=== PATIENT | female | born 1985 | race Caucasian/White ===

== ENCOUNTER 2016-08-14 01:33 | Emergency (ER) | payer OTHER ==
--- NOTE | ~2016-08-14 | CR126 ---
[facility] A Service of [facility] / [facility] RADIOLOGY TEXT RESULTS PATIENT: BRIDGETT MURPHY LOCATION: [facility] : 89 UNIT #: [id number] AGE: [address]: Nereyda Navarrete SEX: F ORDER DR: [id number] [facility] [address] [place], [place] [address] [id number] E MR#: [id number] Acc #: [id number] NAME: BRIDGETT MURPHY : 1985 SEX: F STUDY DATE/TIME: 08/14/2016 1:49 UNIT: [facility] ROOM: STUDY DESCRIPTION: CR Foot Complete Min 3 View Lt Attending Physician: Nereyda Navarrete Pa-C Ordering Physician: Nereyda Navarrete Pa-C Primary Care Physician: No Primary Care Physician MEDICAL IMAGING REPORT This report is preliminary unless electronic signature is present EXAM 3 views left foot. DATE 08/14/2016 HISTORY Left foot and ankle pain laterally for 2 days. Tripped 2 days ago. History of fracture with surgery. COMPARISON Left foot radiographs 10/26/2015 FINDINGS ORIF changes of the distal tibia and fibula and medial malleolus redemonstrated. No acute fracture or joint dislocation or joint effusion is identified. Base of fifth metatarsals intact. Well corticated calcifications are seen adjacent to the cuboid bone. IMPRESSION 1. No acute abnormality of the left foot. Old open reduction internal fixation changes of the left ankle. Dictated by... Tennille Lucas M.D. THIS IS AN ELECTRONICALLY VERIFIED REPORT Tennille Lucas M.D. at 08/14/2016 10:47 PM SANDY/jignesh TD: 08/14/2016 22:03 JOB #: [id number] [facility] A Service of [facility] & [facility] / [facility] RADIOLOGY TEXT RESULTS PATIENT: BRIDGETT MURPHY LOCATION: [facility] : 89 UNIT #: [id number] AGE: [address]: Nereyda Navarrete SEX: F ORDER DR: MEDICAL IMAGING REPORT COPY
--- NOTE | ~2016-08-14 | CR20 ---
[facility] A Service of [facility] RADIOLOGY TEXT RESULTS PATIENT: BRIDGETT MURPHY LOCATION: [facility] : 89 UNIT #: [id number] AGE: [address]: Nereyda Navarrete SEX: F ORDER DR: [id number] [facility] [address]. [place], [place] [address] [id number] E MR#: [id number] Acc #: [id number] NAME: BRIDGETT MURPHY : 1985 SEX: F STUDY DATE/TIME: 08/14/2016 1:48 UNIT: [facility] ROOM: STUDY DESCRIPTION: CR Ankle Min 3 Views Lt Attending Physician: Nereyda Navarrete Pa-C Ordering Physician: Nereyda Navarrete Pa-C Primary Care Physician: No Primary Care Physician MEDICAL IMAGING REPORT This report is preliminary unless electronic signature is present EXAM 3 views left ankle. DATE OF EXAM 08/14/2016 HISTORY Left lateral foot and ankle pain for 2 days. Tripped 2 days ago. History of fracture. COMPARISON Left ankle radiographs, 02/11/2016. FINDINGS No acute fracture or dislocation in the left ankle. Base of fifth metatarsal appears intact. Well corticated calcifications are seen at the base of the cuboid bone. ORIF changes of the distal tibia and fibula appear similar to 02/11/2016. IMPRESSION No acute abnormality of the left ankle. Open reduction internal fixation changes of the distal fibula and tibia and medial malleolus. Dictated by... Tennille Lucas M.D. THIS IS AN ELECTRONICALLY VERIFIED REPORT Tennille Lucas M.D. at 08/14/2016 10:47 PM SANDY/georgie TD: 08/14/2016 22:06 JOB #: [id number] [facility] A Service of [facility] RADIOLOGY TEXT RESULTS PATIENT: BRIDGETT MURPHY LOCATION: [facility] : 89 UNIT #: [id number] AGE: [address]: Nereyda Navarrete SEX: F ORDER DR: MEDICAL IMAGING REPORT COPY
[2016-08-14 00:41] LABS: URINE SOURCE CLEAN CATCH
[2016-08-14 00:55] LABS: URINE APPEARANCE CLEAR; URINE BILIRUBIN NEG (NEG); URINE BLOOD NEG (NEG); URINE COLOR YELLOW; URINE GLUCOSE NEG (NEG); URINE KETONE NEG (NEG); URINE LEUKOCYTE ESTERASE NEG (NEG); URINE NITRATE NEG (NEG); URINE PH 5.5 (5-8); URINE PROTEIN NEG (NEG); URINE SPECIFIC GRAVITY 1.029 (1.003-1.035); URINE UROBILINOGEN 0.2 MG/DL (NEG)
[2016-08-14 01:01] LABS: CULTURE INDICATED? NO
[~2016-08-14 01:33] MED LIST: ADVAIR; ALBUTEROL17 GM; ALBUTEROL17 GM INH; AMOXICILLIN PO; ANTIVERT PO; ATARAX PO; ATIVAN0.5 M1 PO; BACTRIM DS TABL1 TA1 PO; BENTYL10 MG PO; BENZONATATE PO; BUSPAR15 M1 PO; CARDIZEM CD; CELEXA20 MG PO; CERUMENEX; CLARITIN10 MG; CLARITIN10 MG PO; CLONAZEPAM0.5 MG PO; DIFLUCAN PO; HEMOCYTE324 MG PO; HYDROCHLOROTHIA25 MG PO; IRON SUPPLEMENT1 TAB PO; IRON TAB; IRON TABLETS1 TAB; IRON1 TA1; IRON1 TAB; KLONOPIN0.5 M1 PO; KLONOPIN0.5 MG PO; LISINOPRIL10 MG PO; LORTAB 5-325 M1 EACH PO; LORTAB 7.5-5001 TAB PO; MECLIZINE HCL12.5 M2 PO; MEDROL4 MG/DOSE- PO; METOPROLOL SUCC25 MG PO; MONODOX100 MG PO; MOTION RELIEF25 MG PO; MULTI VITAMIN1 EACH PO; NAPROXEN; NAPROXEN PO; NASONEX17 GM; NO MEDICATIONS; PERCOCET5/325 PO; PRENATAL MULITV1 TAB; PROZAC; PYRIDIUM100 MG PO; TRAVEL SICKNESS25 MG PO; VIIBRYD20 MG PO; VOLTAREN75 MG PO; XARELTO10 MG PO; ZANTAC; ZITHROMAX1 G/PKT PO; ZOFRAN ODT4 MG PO
[2016-08-18 13:04] LABS: CHLAMYDIA TRACH Not Detected (Not Detected); N GONOR Not Detected (Not Detected)
== END 2016-08-14 03:03 | disposition home or self-care (01) ==
LOC: CED 01:33
PROVIDERS: Emergency Medicine; Physician Assistant Medical
DX: N89.8 Other specified noninflammatory disorders of vagina (principal); M25.572 Pain in left ankle and joints of left foot; K21.9 Gastro-esophageal reflux disease without esophagitis; J45.909 Unspecified asthma, uncomplicated; F41.9 Anxiety disorder, unspecified; F32.9 Major depressive disorder, single episode, unspecified
CPT/HCPCS: 73610; 73630; 81003; 84703; 87491; 87591; 87808; 87905; 99284

== ENCOUNTER 2016-08-18 21:30 | Emergency (ER) | payer OTHER | END 2016-08-18 22:05 | disposition home or self-care (01) | LOC: SED 21:30 | DX: F41.1 Generalized anxiety disorder (principal); F17.210 Nicotine dependence, cigarettes, uncomplicated; Z88.8 Allergy status to other drugs, medicaments and biological substances; Z79.899 Other long term (current) drug therapy | CPT/HCPCS: 99283 ==

== ENCOUNTER 2017-02-15 19:08 | Emergency (ER) | payer OTHER ==
[~2017-02-15] VITALS: Ht 160 cm; Wt 91.6 kg
--- NOTE | ~2017-02-15 | EKG ---
PATIENT: BRIDGETT MURPHY UNIT #: [id number] Ventricular Rate: 100 BPM Atrial Rate: 100 BPM P-R Interval: 150 ms QRS Duration: 74 ms Q-T Interval: 360 ms QTC Calculation(Bezet): 464 ms P [place]: 45 degrees Calculated R [place]: 15 degrees Calculated T [place]: 44 degrees Diagnosis Line: Normal sinus rhythm Diagnosis Line: Normal ECG Diagnosis Line: When compared with ECG of 31-OCT-2015 16:16, Diagnosis Line: No significant change was found Diagnosis Line: Confirmed by ATNYA PASCUAL MD ([id number]) on 02/16/2017 Diagnosis Line: 7:34:56 PM INTERPRETING MD: SAMARA RUCKER
[2017-02-15] MEDS ORDERED: LEXAPRO20 MG PO (19:16)
[2017-02-15 19:26] LABS: URINE SOURCE CLEAN CATCH
[2017-02-15 19:29] LABS: URINE APPEARANCE CLEAR; URINE BILIRUBIN NEG (NEG); URINE BLOOD TRACE-INTACT (NEG); URINE COLOR YELLOW; URINE GLUCOSE NEG (NORM); URINE KETONE NEG (NEG); URINE LEUKOCYTE ESTERASE NEG (NEG); URINE NITRATE NEG (NEG); URINE PH 5.5 (5-8); URINE PROTEIN NEG (NEG); URINE SPECIFIC GRAVITY >=1.030 (1.003-1.035); URINE UROBILINOGEN 0.2 MG/DL (NORM)
[2017-02-15 19:30] LABS: MICRO INDICATED? YES
[2017-02-15 19:34] LABS: CULTURE INDICATED? YES; URINE BACTERIA 1+ (NEG); URINE MUCUS PRESENT; URINE SQUAMOUS EPITHELIAL CELL OCCAS /[HPF]; URINE TRANSITIONAL EPI CELLS FEW /[HPF]; URINE WBC 0-2 /[HPF] (0-5)
[2017-02-15 19:47] LABS: AMPHETAMINE NEG (NEG); BARBITURATES NEG (NEG); BENZODIAZEPINES POS (NEG); COCAINE NEG (NEG); MARIJUANA NEG (NEG); OPIATES NEG (NEG); TRICYCLIC ANTIDEPRESSANTS NEG (NEG); U METHADONE NEG (NEG)
[2017-02-15 19:52] LABS: BASOPHIL# 0.1 X10e3 (0-0.3); BASOPHIL% 0.7 % (0-2.5); DIFF IND NO; EOSINOPHIL# 0.3 X10e3 (0-0.7); EOSINOPHIL% 3.3 % (0.0-7.0); HEMATOCRIT 34.5 % (35.0-45.0); HEMOGLOBIN 11.2 gm/dL (12.0-16.0); LYMPHOCYTE# 1.5 X10e3 (1.0-3.5); LYMPHOCYTE% 16.3 % (17.0-45.0); MEAN CELL VOLUME 83.3 FL (83-96); MEAN CORPUSCULAR HEMOGLOBIN 27.1 PG (28-34); MEAN CORPUSCULAR HGB CONC 32.6 g/dL (30-36); MEAN PLATELET VOLUME 8.6 FL (6.5-11.5); MONOCYTE# 0.3 X10e3 (0-1.0); MONOCYTE% 3.7 % (3.0-12.0); PLATELET COUNT 187 X10e3 (140-420); RED BLOOD COUNT 4.15 X10e (3.90-5.30); RED CELL DISTRIBUTION WIDTH 15.8 % (11.0-15.5); WHITE BLOOD COUNT 9.2 X10e3 (4.0-10.5)
[2017-02-15 20:03] LABS: POC - CKMB <1.0 ng/mL (0.0-7.9); POC - MYOGLOBIN 48.7 ng/mL (0.0-169.0); POC - TROPONIN <0.05 ng/mL (<=0.05)
[2017-02-15 20:05] LABS: BILIRUBIN,TOTAL 0.4 mg/dL (0.2-2.0); BUN/CREATININE RATIO 22.85; CALCIUM SERUM 8.9 mg/dL (8.4-10.2); CREATININE SERUM 0.7 mg/dL (0.6-1.4); GLOM FILT RATE Estimated 116.3 mL/min (>60); POTASSIUM 3.4 mmol/L (3.5-5.1)
== END 2017-02-15 20:44 | disposition home or self-care (01) ==
LOC: SED 19:08
PROVIDERS: Emergency Medicine
DX: F41.9 Anxiety disorder, unspecified (principal); R73.9 Hyperglycemia, unspecified; I10 Essential (primary) hypertension; Z88.8 Allergy status to other drugs, medicaments and biological substances
CPT/HCPCS: 36415; 80053; 80307; 81003; 82553; 83874; 84484; 84703; 85025; 87086; 93005; 99284